=== PATIENT | female | born 1965 | race Caucasian/White ===

== ENCOUNTER 2017-01-26 17:14 | Emergency (ER) | payer MEDICAID ==
[~2017-01-26] VITALS: Ht 162.6 cm; Wt 118.8 kg
[2017-01-26] MEDS ORDERED: DAPA5TAB PO (17:23)
[2017-01-26] MEDS ORDERED: BROM2.5T3 PO (17:23)
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
[2017-01-26] MEDS ORDERED: ONDANSETRON 4 MG TAB.RAPDIS ONE (21:23)
[2017-01-26] MEDS ORDERED: MORPHINE SULFATE INJ 2 MG/ML DISP.SYRIN ONE (21:23)
--- NOTE | 2017-01-26 21:25 | NUR ---
ASSUMED CARE OF PT AT THIS TIME. PT TALKING TO FAMILY WITH NO S/S OF DISTRESS NOTED. RESP EVEN AND UNLABORED. ON MONITOR. INFORMED OF RESULTS AND PENDING DISCHARGE.
[2017-01-26] MEDS: MORPHINE SULFATE INJ 2 MG/ML DISP.SYRIN IM ONE (21:39)
[2017-01-26] MEDS: ONDANSETRON 4 MG TAB.RAPDIS SL ONE (21:40)
--- NOTE | 2017-01-26 21:46 | NUR ---
Patient discharged to home in stable condition. Written and verbal after care instructions given. Patient verbalizes understanding of instruction. No s/s of acute distress noted. Resp even and unlabored. Accompanied by family.
[2017-01-26 21:48] VITALS: BP 117/73
== END 2017-01-26 21:48 | disposition home or self-care (01) ==
LOC: ER 17:21
DX: M54.2 Cervicalgia (principal); M54.5 Low back pain; M54.6 Pain in thoracic spine; E11.9 Type 2 diabetes mellitus without complications; I51.7 Cardiomegaly; M51.37 Other intervertebral disc degeneration, lumbosacral region; D35.2 Benign neoplasm of pituitary gland; Z90.49 Acquired absence of other specified parts of digestive tract; Z98.51 Tubal ligation status; Z88.5 Allergy status to narcotic agent; Z90.710 Acquired absence of both cervix and uterus; V43.52XA Car driver injured in collision with other type car in traffic accident, initial encounter; Y93.89 Activity, other specified; Y92.488 Other paved roadways as the place of occurrence of the external cause; Y99.8 Other external cause status
CPT/HCPCS: 70450; 71010; 72125; 72128; 72131; 96372; 99284; A4606; J2270; Q0162; Z7610